=== PATIENT | female | born 1995 | race Caucasian/White ===

== ENCOUNTER 2016-10-06 11:27 | Emergency (ER) | payer OTHER ==
[~2016-10-06] VITALS: Ht 165.1 cm; Wt 96.0 kg
[~2016-10-06 11:27] MED LIST: ALBUAER19 INH; BUPR150T7 PO; FLUO10CA48 PO; FLUT220A INH; LORA10TA44 PO
[2016-10-06 11:30] VITALS: TEMP 37.1; Ht 165.1 cm; Wt 96.0 kg
[2016-10-06] MEDS ORDERED: IBUP-1050 PO (11:41)
[2016-10-06] MEDS ORDERED: PENICILLIN V POTASSIUM 250 MG TAB PO ONE (12:15)
[2016-10-06] MEDS ORDERED: HYDROCODONE/ACETAMOPHEN 5/325MG TAB PO STA (12:15)
[2016-10-06] MEDS ORDERED: PENI500T2 PO (12:18)
[2016-10-06] MEDS ORDERED: HYDR-5688 PO ×2 (12:18→12:22)
--- NOTE | 2016-10-06 12:18 | EMERGENCY ROOM VISIT NOTE ---
ED Visit Note First contact with patient: 11:50 CHIEF COMPLAINT: Right lower dental pain 2 days HISTORY OF PRESENT ILLNESS: Patient is a 21-year-old white female who presents to emergency department for evaluation of right lower dental pain. Her pain started 2 days ago. She notes it as a throbbing, constant, 9/10 pain. She is taken ibuprofen, Orajel and holding whiskey along the tooth, without relief of her pain. She states it hurts to bite down. She believes that she may have a filling in that tooth, otherwise denies any problems. No drainage, or discharge in the mouth. Denies facial swelling or fever. REVIEW OF SYSTEMS: Review of systems as per HPI. All other systems reviewed were negative. At least 6 systems reviewed. PMH: Electronic medical records are reviewed and summarized as above/below. See Problem List. SOCIAL HISTORY: Patient lives at home. PHYSICAL EXAM: Vital Signs: Reviewed Nurse's notes. CONSTITUTIONAL: Patient is a well-appearing 21-year-old white female who is awake and alert and in no acute distress. Vital signs are stable. EARS: Tympanic membranes intact, not inflamed, have normal contour. External canals clear. MOUTH: Overall the patient has good dentition. The right lower first molar in question has a filling and is tender to percussion. There is slight swelling along the gumline although no focal abscess. Mucous membranes moist, no lesions , tongue and gums appear normal. THROAT: No pharyngeal injection, exudates, or tonsillar hypertrophy. Airway is patent. No trismus noted. FACE: No facial swelling is appreciated. No cellulitic changes. NECK: No lymphadenopathy. . ED COURSE: The patient was seen and evaluated as above. The tooth is not grossly carious or decayed. There is no focal abscess along the gumline or evidence for facial cellulitis or Alfred's angina. She was given antibiotics to cover for apical infection and pain medication to use as needed. She was encouraged to follow up with a dentist for further care and management. Problem List Medical Problems: (1) Anxiety Status: Chronic (2) Anxiety Status: Resolved (3) Asthma Status: Chronic (4) Cervical strain Status: Resolved (5) Cervicalgia Status: Chronic (6) Contusion Status: Resolved (7) Facial contusion Status: Resolved (8) Headache Status: Resolved (9) Headache Status: Resolved (10) HTN (hypertension) Status: Chronic (11) Injury of right knee Status: Resolved (12) Left knee injury Status: Resolved (13) Neck muscle strain Status: Resolved (14) Neck muscle strain Status: Resolved (15) Polycystic Ovaries Status: Chronic (16) Subluxation of right patella Status: Resolved (17) Syncope Status: Resolved (18) Tobacco Use Disorder Status: Resolved (19) Work related injury Status: Resolved Surgical Problems: (1) History of arthroscopic knee surgery Status: Resolved (2) History of wisdom tooth extraction Status: Resolved Current/Historical Medications Scheduled Control Pills ( Control Pills), 1 TAB PO QAM Loratadine (Allergy), 1 TAB PO QAM Penicillin V Potassium (Veetids), 500 MG PO QID Scheduled PRN Albuterol Inhaler (Ventolin Inhaler), 2 PUFFS INH QID PRN for SOB/Wheezing Fluticasone Propionate Hfa (Flovent Hfa 220MCG Inhaler), 1 PUFF INH BID PRN for SOB/Wheezing Hydrocodone/Acetaminophen 5MG/325MG (Florence 5MG/325MG), 1-2 TABLETS PO Q4 PRN for Pain Miscellaneous Medications Ibuprofen (Advil), 200 MG PO Allergies Coded Allergies: Sulfa Antibiotics (Verified Allergy, Severe, rash, 04/01/16) Azithromycin (Verified Allergy, Unknown, RASH;SWELLING OF THE THROAT, 04/01) Hydrochlorothiazide w/Triamterene (Verified Allergy, Unknown, RASH, ) Vital Signs Date Time Temp Pulse Resp B/P Pulse Ox O2 Delivery O2 Flow Rate FiO2 10/06/16 12:30 89 16 131/79 99 10/06/16 11:30 37.1 102 16 139/83 96 Medications Administered Medications (Trade) Dose Ordered Sig/Tania Route Start Time Stop Time Status Last Admin Dose Admin Penicillin V Potassium (Veetids Tab) 500 mg ONE ONCE PO 10/06/16 12:15 10/06/16 12:16 DC 10/06/16 12:28 500 MG Acetaminophen/ Hydrocodone Bitart (Florence 5/325 Tab) 1 tab NOW STAT PO 10/06/16 12:15 10/06/16 12:16 DC 10/06/16 12:28 1 TAB Departure Information Impression Primary Impression: Dentalgia Prescriptions Hydrocodone/Acetaminophen 5MG/325MG (Florence 5MG/325MG) Tab 1-2 TABLETS PO Q4 Y for Pain, #20 TAB For Initial Treatment Prov: Ankita Angeles PA 10/06/16 Penicillin V Potassium (VEETIDS) 500 Mg Tab 500 MG PO QID, #40 TAB Prov: Ankita Angeles PA 10/06/16 Referrals Shireen Hernandes D.O. (PCP) Patient Instructions A Signature Page, My [facility] Additional Instructions DO NOT drive, drink alcohol, operate machinery, or perform dangerous activities today. You were given medications in the ER that can affect your ability to safely function or operate a vehicle. Hydrocodone/Acetaminophen (Florence) 5/325 mg: Take 1-2 pills every four hours for breakthrough pain. Avoid alcohol, operating machinery or dangerous equipment, working on ladders or roofs, DRIVING, or situations where being under the influence may be dangerous. It is recommended to use an grtq-[id number]-[id number] stool softener such as Colace, 100mg twice daily while taking this medication to avoid constipation. Penicillin 500mg: Take one pill four times daily for 10 days for your dental infection. All antibiotics can cause diarrhea. If this occurs and you feel worse or it does not resolve in 1-2 days follow up with your doctor or return to the Emergency Department as this could be signs of serious underlying problems. Any medication can cause an allergic reaction, stop the pills immediately and return to the ER for rash, hives, breathing difficulties, or swelling. Ibuprofen(Motrin, Advil) may be used for fever or pain. Use 600mg every six hours as needed. Take with food. Avoid using more than 2400mg in a 24 hour period. Do not use 2400mg per day for more than three consecutive days without physician direction. Prolonged inappropriate use can lead to stomach upset or ulcers. (AND/OR) Acetaminophen(Tylenol) may be used for fever or pain. Use 1000mg every six hours as needed. Avoid using more than 4000mg in a 24 hour period. Saltwater gargles after meals and before bedtime. Soft foods. Orajel/Anbesol/clove oil as needed for discomfort. Followup with your dentist for definitive management. You may also follow up with your primary care physician for pain/care management until you can be seen by your dentist.
[2016-10-06 12:30] VITALS: BP 131/79; PULSE 89; O2SAT 99
[2017-06-25] MEDS ORDERED: ATR25 PO (12:19)
[2017-06-25] MEDS ORDERED: BCPILLS PO (14:48)
[2017-06-25] MEDS ORDERED: FLVHFA44 INH (15:33)
[2017-06-25] MEDS ORDERED: NRN100 PO (15:33)
[2017-06-25] MEDS ORDERED: VNTHFA/IN INH (15:33)
== END 2016-10-06 12:32 | disposition home or self-care (01) ==
LOC: C.EDB 11:28 → C.EDD 12:32
DX: K08.89 Other specified disorders of teeth and supporting structures (principal); J45.909 Unspecified asthma, uncomplicated; I10 Essential (primary) hypertension; F17.200 Nicotine dependence, unspecified, uncomplicated; Z98.890 Other specified postprocedural states; Z98.818 Other dental procedure status; Z79.3 Long term (current) use of hormonal contraceptives; Z88.2 Allergy status to sulfonamides; Z88.1 Allergy status to other antibiotic agents

== ENCOUNTER → 2016-10-18 | Outpatient (CLI) | payer OTHER ==
[~2016-10-18] MED LIST changes: +ATR25 PO; +BCPILLS PO; -BUPR150T7 PO; +ETOD500T PO; -FLUO10CA48 PO; +FLVHFA44 INH; +FLX10 PO; +FRCT/ PO; +HYDR-5688 PO; +IBUP-1050 PO; +NITR1CAP16 PO; +NRN100 PO; +VENL37.593 PO; +VNTHFA/IN INH
--- NOTE | 2016-10-18 11:33 | DIAGNOSTIC IMAGING REPORT ---
MRI OF THE LUMBAR SPINE WITHOUT CONTRAST CLINICAL HISTORY: Bilateral S1 radiculopathies. Protruded lumbar disc. COMPARISON STUDY: Lumbar spine radiographs September 19, 2016. TECHNIQUE: Utilizing a 1.5 Alexsandra magnet and dedicated coil, multiplanar, multiecho imaging of the lumbar spine was performed without IV contrast. FINDINGS: For purposes of numbering on this exam, the L5-S1 disc space is assigned to axial image 33 of 36. Alignment of the lumbar spine is anatomic. Vertebral body heights are maintained. There is no marrow replacement. The paravertebral soft tissues are unremarkable. No intracanalicular mass or fluid collection is present. Conus terminates at the L1-L2 level. Several Schmorl's nodes are noted. T12-L1: There is a small right paracentral disc protrusion which results in mild narrowing of the right lateral recess. L1-2: There is a small to moderate-sized right paracentral disc osteophyte complex that results in moderate narrowing of the right lateral recess. L2-3: The central canal and neural foramen are patent. L3-4: The central canal and neural foramen are patent. L4-5: The central canal and neural foramen are patent. L5-S1: The central canal and neural foramen are patent. IMPRESSION: 1. Small to moderate-sized right paracentral disc osteophyte complex at L1-L2 that results in moderate narrowing of the right lateral recess. 2. Small right paracentral disc protrusion at T12-L1 that results in mild narrowing of the right lateral recess. 3. Otherwise, unremarkable MRI of the lumbar spine. Electronically signed by: Anthony Oro M.D. 10/18/2016 11:31 AM Dictated Date/Time: 10/18/2016 11:24 AM
== END | disposition home or self-care (01) ==
LOC: C.MRI 10:24
PROVIDERS: ATTEND Physical Medicine & Rehabilitation
DX: M54.18 Radiculopathy, sacral and sacrococcygeal region (principal); M25.78 Osteophyte, vertebrae; M48.06 Spinal stenosis, lumbar region; M51.25 Other intervertebral disc displacement, thoracolumbar region

== ENCOUNTER 2016-11-17 15:08 | Emergency (ER) | payer OTHER ==
[~2016-11-17] VITALS: Ht 170.2 cm; Wt 90.5 kg
[~2016-11-17 15:08] MED LIST changes: -ATR25 PO; -BCPILLS PO; -ETOD500T PO; -FLVHFA44 INH; -FLX10 PO; -FRCT/ PO; -NITR1CAP16 PO; -NRN100 PO; -VENL37.593 PO; -VNTHFA/IN INH
[2016-11-17 15:17] VITALS: TEMP 37.2; Ht 170.2 cm; Wt 90.5 kg
[2016-11-17] MEDS ORDERED: SODIUM CHLORIDE 0.9% 1000ML 1,000 ML IV STA (15:41)
[2016-11-17] MEDS ORDERED: ONDANSETRON INJ 2 MG/ML 2 ML VIAL IV STA (15:41)
[2016-11-17 15:58] VITALS: O2SAT 97
--- NOTE | 2016-11-17 16:02 | DIAGNOSTIC IMAGING REPORT ---
CHEST ONE VIEW PORTABLE CLINICAL HISTORY: Syncope. COMPARISON STUDY: No previous studies for comparison. FINDINGS: Lung volumes are diminished. There is no pneumothorax or pleural effusion. Cardiac size is normal. Mediastinal contours are normal. There is no evidence of pulmonary edema. IMPRESSION: 1. No acute findings. 2. Diminished lung volumes. Electronically signed by: Anthony Oro M.D. 11/17/2016 4:00 PM Dictated Date/Time: 11/17/2016 4:00 PM
[2016-11-17 16:17] LABS: BASO % 0.3 %; BASO ABS # 0.04 K/uL (0-0.2); COMPLETE YES; EOS % 1.1 %; HEMATOCRIT 41.8 % (37-47); IG% 0.3 %; LYMPH % 24.3 %; LYMPH ABS # 3.44 K/uL (1.2-3.4); MEAN CELL VOLUME 89.5 fL (80-100); MEAN CORPUSCULAR HEMOGLOBIN 31.3 pg (25-34); MEAN CORPUSCULAR HGB CONC 34.9 g/dl (32-36); MEAN PLATELET VOLUME 9.7 fL (7.4-10.4); MONO % 4.2 %; NEUT % 69.8 %; PLATELET COUNT 293 K/uL (130-400); RED BLOOD COUNT 4.67 M/uL (4.2-5.4); WHITE BLOOD COUNT 14.14 K/uL (4.8-10.8)
[2016-11-17 16:47] LABS: ALT/SGPT 29 U/L (12-78); BLOOD UREA NITROGEN 9 mg/dl (7-18); BUN/CREATININE RATIO 13.2 (10-20); CALCIUM 8.5 mg/dl (8.5-10.1); CARBON DIOXIDE 22 mmol/L (21-32); CHLORIDE 107 mmol/L (98-107); CREATININE 0.66 mg/dl (0.60-1.20); GLUCOSE 80 mg/dl (70-99); SODIUM 141 mmol/L (136-145)
[2016-11-17 16:48] LABS: ALB/GLOB RATIO 0.9 (0.9-2); ALKALINE PHOSPHATASE 94 U/L (45-117)
--- NOTE | 2016-11-17 17:32 | DIAGNOSTIC IMAGING REPORT ---
CT OF THE HEAD WITHOUT CONTRAST CLINICAL HISTORY: Syncope. Head injury. COMPARISON STUDY: Head CT September 28, 2015. CT DOSE: 691.05 mGy.cm TECHNIQUE: Helical axial images of the head were obtained without IV contrast. Automated exposure control was utilized for the study. FINDINGS: This exam is mildly compromised by motion artifact. No acute intracranial hemorrhage, midline shift or mass effect is present. Ventricular system is normal. The basilar cisterns are patent. There are no extra axial collections. Elizabeth-white differentiation is preserved. There is no calvarial fracture. IMPRESSION: 1. No acute intracranial findings. 2. No calvarial fracture. 3. Study mildly compromised by motion artifact. Electronically signed by: Anthony Oro M.D. 11/17/2016 5:30 PM Dictated Date/Time: 11/17/2016 5:28 PM
[2016-11-17 17:41] LABS: MANUAL MICROSCOPIC REQUIRED? YES; URINE APPEARANCE CLEAR (CLEAR); URINE COLOR YELLOW; URINE NITRITE NEG (NEG); URINE SPECIFIC GRAVITY 1.025 (1.000-1.030); UROBILINOGEN POS (NEG)
[2016-11-17 17:42] VITALS: BP 139/85; PULSE 91; O2SAT 97
[2016-11-17 17:44] LABS: POTASSIUM 3.7 mmol/L (3.5-5.1)
[2016-11-17 17:47] LABS: PREG INTERNAL NEGATIVE QC NEG CLEAR BACKGROUND; PREG INTERNAL POSITIVE QC POS CONTROL LINE
[2016-11-17 17:53] LABS: REVIEW REQ? NO; URINE BILIRUBIN NEG (NEG)
[2016-11-17 17:54] LABS: URINE BACTERIA NEG (NEG); URINE RBC 0-4 /hpf (0-4)
[2016-11-17 17:55] LABS: ZZUR CULT IF INDIC CLEAN CATCH NO
--- NOTE | 2016-11-17 18:00 | EMERGENCY ROOM VISIT NOTE ---
History First contact with patient: 15:29 Chief Complaint: SYNCOPE Stated Complaint: DIZZINESS,VOMITING,HEADACHE Nursing Triage Summary: Pt reports syncopal episode approx 1 hr HOSPICE LIAISON. States hit her head on the floor, c/o h/a. Pt into triage stating "I feel like I'm going to pass out." Pt states has had syncopal episodes in the past r/t bp. t denies cp. +SOB and n/v. History of Present Illness The patient is a 21 year old female who presents to the Emergency Room with complaints of several syncopal episodes. The patient reports that her symptoms began yesterday. She states that she was very upset and she was sitting on her bed with her boyfriend when she had a syncopal episode. The patient apparently had 2 syncopal episodes which lasted for 1 minute each, but does not remember these occurring. She then had one additional syncopal episode and did remember this happening. She states this has happened one time before when she was very anxious. She was told to follow-up with her primary care provider, but did not. She states that today, she was walking and became dizzy and lightheaded and had a possible syncopal episode, falling and causing her to hit her head. She has been nauseous and has not been able to eat anything since this morning. She rates her overall discomfort a 7/10. She denies any chest pain, shortness of breath, abdominal pain, vomiting, neck pain, recent illness or fevers. Review of Systems A complete 10-point Review of Systems was discussed with the patient, with pertinent positives and negatives listed in the History of Present Illness. All remaining Review of Systems questions can be considered negative unless otherwise specified. Past Medical/Surgical History Medical Problems: (1) Anxiety (2) Anxiety (3) Asthma (4) Cervical strain (5) Cervicalgia (6) Contusion (7) Facial contusion (8) Headache (9) Headache (10) HTN (hypertension) (11) Hypertension Nos (12) Injury of right knee (13) Left knee injury (14) Neck muscle strain (15) Neck muscle strain (16) Polycystic Ovaries (17) Subluxation of right patella (18) Syncope (19) Tobacco Use Disorder (20) Work related injury Surgical Problems: (1) History of arthroscopic knee surgery (2) History of wisdom tooth extraction Family History Diabetes mellitus Social History Smoking Status: Former Smoker Alcohol Use: none Marital Status: single Housing Status: lives with family Occupation Status: employed, student Current/Historical Medications Scheduled Control Pills ( Control Pills), 1 TAB PO QAM Gabapentin (Gabapentin), 100 MG PO TID Loratadine (Allergy), 1 TAB PO QAM Scheduled PRN Albuterol Hfa (Ventolin Hfa), 2 INH QID PRN for SOB/Wheezing Fluticasone Propionate (Flovent Hfa), 2 PUFFS INH BID PRN for SOB/Wheezing Ibuprofen (Advil), 400 MG PO UD PRN for Headache or Pain Allergies Coded Allergies: Sulfa Antibiotics (Verified Allergy, Severe, rash, 11/17/16) Azithromycin (Verified Allergy, Unknown, RASH;SWELLING OF THE THROAT, 11/17) Hydrochlorothiazide w/Triamterene (Verified Allergy, Unknown, RASH, ) Physical Exam Vital Signs Date Time Temp Pulse Resp B/P Pulse Ox O2 Delivery O2 Flow Rate FiO2 11/17/16 17:42 91 18 139/85 97 11/17/16 15:58 97 Room Air 11/17/16 15:55 88 23 149/90 90 138/92 97 139/102 11/17/16 15:17 37.2 107 18 148/88 97 Room Air Physical Exam VITALS: Vitals are noted on the nurse's note and reviewed by myself. Vital signs stable. GENERAL: This is a 21-year-old female, in no acute distress, nondiaphoretic, well-developed well-nourished. SKIN: Capillary reflex less than 2 seconds. HEENT: Normocephalic. PERRLA. EOMI. no nystagmus. Nares patent. Mucous membranes moist. Neck is supple without nuchal rigidity. HEART: Regular rate and rhythm without murmurs gallops or rubs. LUNGS: Clear to auscultation bilaterally without wheezes, rales or rhonchi. ABDOMEN: Positive bowel sounds x 4. Soft, nontender to palpation. MUSCULOSKELETAL: Full range of motion throughout. Strength 5/5 throughout. NEURO: Patient was alert and oriented to person place and time. Normal sensation to light and sharp touch. Medical Decision & Procedures ER Provider Diagnostic Interpretation: CHEST ONE VIEW PORTABLE FINDINGS: Lung volumes are diminished. There is no pneumothorax or pleural effusion. Cardiac size is normal. Mediastinal contours are normal. There is no evidence of pulmonary edema. IMPRESSION: 1. No acute findings. 2. Diminished lung volumes. CT OF THE HEAD WITHOUT CONTRAST FINDINGS: This exam is mildly compromised by motion artifact. No acute intracranial hemorrhage, midline shift or mass effect is present. Ventricular system is normal. The basilar cisterns are patent. There are no extra axial collections. Elizabeth-white differentiation is preserved. There is no calvarial fracture. IMPRESSION: 1. No acute intracranial findings. 2. No calvarial fracture. 3. Study mildly compromised by motion artifact. Laboratory Results 11/17/16 16:05 Red Blood Count 4.67, Mean Corpuscular Volume 89.5, Mean Corpuscular Hemoglobin 31.3, Mean Corpuscular Hemoglobin Concent 34.9, Mean Platelet Volume 9.7, Neutrophils (%) (Auto) 69.8, Lymphocytes (%) (Auto) 24.3, Monocytes (%) (Auto) 4.2, Eosinophils (%) (Auto) 1.1, Basophils (%) (Auto) 0.3, Neutrophils # (Auto) 9.86, Lymphocytes # (Auto) 3.44, Monocytes # (Auto) 0.60, Eosinophils # (Auto) 0.16, Basophils # (Auto) 0.04 11/17/16 16:05 11/17/16 17:19 Test 11/17/16 16:05 11/17/16 17:19 11/17/16 17:30 White Blood Count 14.14 K/uL (4.8-10.8) Red Blood Count 4.67 M/uL (4.2-5.4) Hemoglobin 14.6 g/dL (12.0-16.0) Hematocrit 41.8 % (37-47) Mean Corpuscular Volume 89.5 fL (80-100) Mean Corpuscular Hemoglobin 31.3 pg (25-34) Mean Corpuscular Hemoglobin Concent 34.9 g/dl (32-36) Platelet Count 293 K/uL (130-400) Mean Platelet Volume 9.7 fL (7.4-10.4) Neutrophils (%) (Auto) 69.8 % Lymphocytes (%) (Auto) 24.3 % Monocytes (%) (Auto) 4.2 % Eosinophils (%) (Auto) 1.1 % Basophils (%) (Auto) 0.3 % Neutrophils # (Auto) 9.86 K/uL (1.4-6.5) Lymphocytes # (Auto) 3.44 K/uL (1.2-3.4) Monocytes # (Auto) 0.60 K/uL (0.11-0.59) Eosinophils # (Auto) 0.16 K/uL (0-0.5) Basophils # (Auto) 0.04 K/uL (0-0.2) RDW Standard Deviation 42.3 fL (36.4-46.3) RDW Coefficient of Variation 13.0 % (11.5-14.5) Immature Granulocyte % (Auto) 0.3 % Immature Granulocyte # (Auto) 0.04 K/uL (0.00-0.02) Anion Gap 12.0 mmol/L (3-11) Est Creatinine Clear Calc Drug Dose 155.7 ml/min Estimated GFR () 146.4 Estimated GFR (Non- 126.3 BUN/Creatinine Ratio 13.2 (10-20) Calcium Level 8.5 mg/dl (8.5-10.1) Total Bilirubin 0.5 mg/dl (0.2-1) Alanine Aminotransferase (ALT/SGPT) 29 U/L (12-78) Alkaline Phosphatase 94 U/L (45-117) Troponin I < 0.015 ng/ml (0-0.045) Total Protein 7.2 gm/dl (6.4-8.2) Albumin 3.4 gm/dl (3.4-5.0) Globulin 3.8 gm/dl (2.5-4.0) Albumin/Globulin Ratio 0.9 (0.9-2) Thyroid Stimulating Hormone (TSH) 1.920 uIu/ml (0.300-4.500) Aspartate Amino Transf (AST/SGOT) 28 U/L (15-37) Chemistry Specimen Hemolysis Urine Color YELLOW Urine Appearance CLEAR (CLEAR) Urine pH 6.0 (4.5-7.5) Urine Specific Loyal 1.025 (1.000-1.030) Urine Protein NEG (NEG) Urine Glucose (UA) NEG (NEG) Urine Ketones 1+ (NEG) Urine Occult Blood 3+ (NEG) Urine Nitrite NEG (NEG) Urine Bilirubin NEG (NEG) Urine Urobilinogen POS (NEG) Urine Leukocyte Esterase NEG (NEG) Urine RBC 0-4 /hpf (0-4) Urine WBC 1-5 /hpf (0-5) Urine Epithelial Cells 20-30 /lpf (0-5) Urine Bacteria NEG (NEG) Urine Test NEG (NEG) Medications Administered Medications (Trade) Dose Ordered Sig/Tania Route Start Time Stop Time Status Last Admin Dose Admin Sodium Chloride (Nss 1000ml) 1,000 ml @ 999 mls/hr Q1H1M STAT IV 11/17/16 15:41 11/17/16 16:41 DC 11/17/16 16:11 999 MLS/HR Ondansetron HCl (Zofran Inj) 4 mg NOW STAT IV 11/17/16 15:41 11/17/16 15:43 DC 11/17/16 16:11 4 MG ECG Rate (beats per minute): 86 Rhythm: normal sinus Findings: no acute ischemic change, no ectopy, other (normal axis) Change: no significant change Medical Decision Differential diagnosis includes cardiac syncope, vasovagal syncope, anxiety, dehydration, infection, metabolic abnormality, among others. The patient was evaluated as above. Labs were drawn and IV access was obtained. Imaging studies were performed and read by radiology as above. The patient was medicated with 1 L normal saline solution and 4 mg Zofran. The patient was reassessed multiple times during their stay in the emergency department and remained in stable condition. The patient is a 21-year-old female who presents today complaining of syncopal episodes. Labs revealed a leukocytosis, which appears to be baseline for the patient. No concerning anemia or electrolyte abnormalities. Urinalysis was not suggestive of infection. Urine was negative. EKG was interpreted by myself and showed a normal sinus rhythm at 86 bpm without evidence of ischemia or ectopy. The patient was placed on the property assessment monitor throughout her stay in the emergency department. Chest x-ray and CT of the head were negative for any acute findings. Orthostatic vital signs were not positive. I do feel the patient's symptoms are likely secondary to anxiety. The patient has had similar episodes in the past and has not followed up with her primary care provider. She was informed of all the findings today and encouraged to follow up with her primary care provider for further evaluation of these ongoing symptoms. Based on the patient's presentation, lab results, and imaging studies, I feel the patient is stable for outpatient treatment. The patient's case was reviewed with Dr. Moore, ED attending physician, who agreed with my assessment and treatment plan. Discharge instructions were reviewed with the patient. The patient verbalized understanding of my assessment and treatment plan and was discharged home in good condition. Impression Primary Impression: Syncope Departure Information Dispostion Home / Self-Care Condition GOOD Referrals Shireen Hernandes D.O. (PCP) Patient Instructions My [facility] Additional Instructions Rest and drink plenty of fluids. You MUST follow-up with your primary care provider regarding these episodes. Call tomorrow for appointment. Return to the emergency department with recurrent episodes of passing out, worsening dizziness, or any other new/concerning symptoms. Problem Qualifiers Primary Impression: Syncope Syncope type: unspecified Qualified Codes: R55 - Syncope and collapse
[2017-06-25] MEDS ORDERED: ATR25 PO (12:19)
[2017-06-25] MEDS ORDERED: BCPILLS PO (14:48)
[2017-06-25] MEDS ORDERED: VNTHFA/IN INH (15:33)
[2017-06-25] MEDS ORDERED: NRN100 PO (15:33)
[2017-06-25] MEDS ORDERED: FLVHFA44 INH (15:33)
== END 2016-11-17 18:05 | disposition home or self-care (01) ==
LOC: C.EDB 15:10 → C.EDA 18:05
DX: R55 Syncope and collapse (principal); I10 Essential (primary) hypertension; J45.909 Unspecified asthma, uncomplicated; E28.2 Polycystic ovarian syndrome; Z87.828 Personal history of other (healed) physical injury and trauma; Z87.891 Personal history of nicotine dependence; Z98.818 Other dental procedure status; Z98.890 Other specified postprocedural states; Z83.3 Family history of diabetes mellitus

== ENCOUNTER 2017-03-20 22:31 | Emergency (ER) | payer OTHER ==
[~2017-03-20] VITALS: Ht 162.6 cm; Wt 99.5 kg
[~2017-03-20 22:31] MED LIST changes: -ALBUAER19 INH; -FLUT220A INH; -HYDR-5688 PO
[2017-03-20 22:35] VITALS: TEMP 36.9; Ht 162.6 cm; Wt 99.5 kg
[2017-03-20 22:50] VITALS: O2SAT 98
[2017-03-20] MEDS ORDERED: LORAZEPAM 2 MG/ML 1 ML VIAL IV STA (23:35)
[2017-03-20] MEDS ORDERED: SODIUM CHLORIDE 0.9% 500ML 500 ML IV STA (23:36)
--- NOTE | 2017-03-20 23:38 | EMERGENCY ROOM VISIT NOTE ---
History Report prepared by Unique: Darrick Cason Under the Supervision of: Dr. Jes Rosa D.O. First contact with patient: 22:59 Chief Complaint: DIZZY Stated Complaint: DIZZY, VOMITING, PASSING OUT Nursing Triage Summary: Pt reports she was at [facility] today for plasma draw. Pt states she does this often and has had no issues. Today pt states she passed out and had numbness and tingling in hands and had to stop the plasma draw. Pt released to home. Pt states she passed out 3 more times at home and has an 8/10 headache. History of Present Illness The patient is a 21 year old female who presents to the Emergency Room with complaints of intermittent syncope that started to occur earlier today. The patient is a frequent participant at the plasma donation center [facility]. She states that she normally does not have any issues with donation. She notes that she has not been there for a couple weeks secondary to a tooth removal. Today however, the patient began to feel diaphoretic and passed out during her plasma draw and began to have numbness and tingling in her hands. She states that her blood pressure was elevated after the episode and needed to return to baseline before she was sent home. She was given Sodium Chloride 1000 ml @ 999 mls/hr IV after her plasma donation. She was then sent home. She notes that she did eat before her visit. When she was at home, she continued to experience dizziness, vomiting, and syncope. She is also experiencing a headache. The patient has a history of anxiety and hypertension. Her high blood pressure was diagnosed by her PCP. Due to her young age, her doctor recommended smoking cessation and weight loss. The patient states that she has stopped smoking, but has been struggling with her weight because of this. She does not take any current medications. She stopped taking her Depression medication 1 year ago. She denies any abdominal pain. Her last menstrual period was a couple of days ago. She states there is no chance she is . Source of History: patient Onset: earlier today Position: other (global) Symptom Intensity: 4 episodes Quality: other (Syncope) Timing: intermittent Associated Symptoms: + headache, + diaphoresis, + vomiting, + numbness, No abdominal pain Note: She experiencing tingling in her hands and dizziness. Review of Systems See HPI for pertinent positives & negatives. A total of 10 systems reviewed and were otherwise negative. Past Medical & Surgical Medical Problems: (1) Anxiety (2) Anxiety (3) Asthma (4) Cervical strain (5) Cervicalgia (6) Contusion (7) Facial contusion (8) Headache (9) Headache (10) HTN (hypertension) (11) HTN (hypertension) (12) Hypertension Nos (13) Injury of right knee (14) Left knee injury (15) Neck muscle strain (16) Neck muscle strain (17) Polycystic Ovaries (18) Subluxation of right patella (19) Syncope (20) Tobacco Use Disorder (21) Work related injury Surgical Problems: (1) History of arthroscopic knee surgery (2) History of wisdom tooth extraction Family History Diabetes mellitus Hypertension Social History Smoking Status: Former Smoker Smokeless Tobacco Use: No Alcohol Use: none Drug Use: none Marital Status: single Housing Status: lives with family Occupation Status: employed, student Current/Historical Medications Scheduled Control Pills ( Control Pills), 1 TAB PO QAM Gabapentin (Gabapentin), 100 MG PO TID Loratadine (Allergy), 1 TAB PO QAM Scheduled PRN Albuterol Hfa (Ventolin Hfa), 2 INH QID PRN for SOB/Wheezing Fluticasone Propionate (Flovent Hfa), 2 PUFFS INH BID PRN for SOB/Wheezing Ibuprofen (Advil), 400 MG PO UD PRN for Headache or Pain Allergies Coded Allergies: Sulfa Antibiotics (Verified Allergy, Severe, rash, 11/17/16) Azithromycin (Verified Allergy, Unknown, RASH;SWELLING OF THE THROAT, 11/17) Hydrochlorothiazide w/Triamterene (Verified Allergy, Unknown, RASH, ) Physical Exam Vital Signs Date Time Temp Pulse Resp B/P (MAP) Pulse Ox O2 Delivery O2 Flow Rate FiO2 03/21/17 01:11 94 18 131/103 98 03/21/17 00:31 132/88 03/21/17 00:06 88 23 98 03/21/17 00:01 126/100 03/20/17 23:36 95 18 03/20/17 23:31 89 25 130/107 98 03/20/17 23:01 93 20 135/90 03/20/17 22:52 151/94 03/20/17 22:50 93 03/20/17 22:50 132/87 03/20/17 22:50 98 Room Air 03/20/17 22:48 144/75 03/20/17 22:47 95 24 144/75 98 Room Air 99 132/87 108 151/84 03/20/17 22:35 36.9 112 18 137/83 97 Room Air Physical Exam General: Patient appears to be anxious. HEENT: Head - normocephalic and atraumatic Pupils are equal, round, and reactive to light. Extraocular eye muscles are intact, and sclera are anicteric. Nose - moist nasal mucosa without discharge. Mouth - moist buccal mucosa. Oropharynx is nonerythematous and there is no tonsillar exudate or edema noted. Neck: Supple; no JVD, nuchal rigidity, cervical lymphadenopathy. Heart: Regular rate and rhythm. There is a normal S1 and S2 with no murmurs, clicks, or gallops appreciated. Lungs: Clear to auscultation bilaterally with no wheezes, rales, or rhonchi. Abdomen: Soft, completely nontender, nondistended, with good bowel sounds. There are no palpable pulsatile masses or hepatosplenomegaly. There is no guarding, rigidity, or rebound noted. Extremities: No evidence of cyanosis, clubbing, or edema. There are easily palpable peripheral pulses. Skin: warm and dry with good turgor and no rashes. Medical Decision & Procedures Laboratory Results 03/20/17 22:55 Red Blood Count 5.33, Mean Corpuscular Volume 88.7, Mean Corpuscular Hemoglobin 31.0, Mean Corpuscular Hemoglobin Concent 34.9, Mean Platelet Volume 9.9, Neutrophils (%) (Auto) 55.3, Lymphocytes (%) (Auto) 33.5, Monocytes (%) (Auto) 6.8, Eosinophils (%) (Auto) 3.7, Basophils (%) (Auto) 0.3, Neutrophils # (Auto) 8.78, Lymphocytes # (Auto) 5.33, Monocytes # (Auto) 1.08, Eosinophils # (Auto) 0.58, Basophils # (Auto) 0.05 03/20/17 22:55 Test 03/20/17 22:50 03/20/17 22:55 Urine Color DK YELLOW Urine Appearance TURBID (CLEAR) Urine pH 5.5 (4.5-7.5) Urine Specific [place] 1.037 (1.000-1.030) Urine Protein NEG (NEG) Urine Glucose (UA) NEG (NEG) Urine Ketones TRACE (NEG) Urine Occult Blood 2+ (NEG) Urine Nitrite NEG (NEG) Urine Bilirubin NEG (NEG) Urine Urobilinogen NEG (NEG) Urine Leukocyte Esterase NEG (NEG) Urine WBC (Auto) 1-5 /hpf (0-5) Urine RBC (Auto) 0-4 /hpf (0-4) Urine Hyaline Casts (Auto) 1-5 /lpf (0-5) Urine Epithelial Cells (Auto) >30 /lpf (0-5) Urine Bacteria (Auto) 1+ (NEG) Urine Test NEG (NEG) White Blood Count 15.89 K/uL (4.8-10.8) Red Blood Count 5.33 M/uL (4.2-5.4) Hemoglobin 16.5 g/dL (12.0-16.0) Hematocrit 47.3 % (37-47) Mean Corpuscular Volume 88.7 fL (80-100) Mean Corpuscular Hemoglobin 31.0 pg (25-34) Mean Corpuscular Hemoglobin Concent 34.9 g/dl (32-36) Platelet Count 346 K/uL (130-400) Mean Platelet Volume 9.9 fL (7.4-10.4) Neutrophils (%) (Auto) 55.3 % Lymphocytes (%) (Auto) 33.5 % Monocytes (%) (Auto) 6.8 % Eosinophils (%) (Auto) 3.7 % Basophils (%) (Auto) 0.3 % Neutrophils # (Auto) 8.78 K/uL (1.4-6.5) Lymphocytes # (Auto) 5.33 K/uL (1.2-3.4) Monocytes # (Auto) 1.08 K/uL (0.11-0.59) Eosinophils # (Auto) 0.58 K/uL (0-0.5) Basophils # (Auto) 0.05 K/uL (0-0.2) RDW Standard Deviation 42.1 fL (36.4-46.3) RDW Coefficient of Variation 13.0 % (11.5-14.5) Immature Granulocyte % (Auto) 0.4 % Immature Granulocyte # (Auto) 0.07 K/uL (0.00-0.02) Anion Gap 9.0 mmol/L (3-11) Est Creatinine Clear Calc Drug Dose 129.2 ml/min Estimated GFR () 124.0 Estimated GFR (Non- 107.0 BUN/Creatinine Ratio 14.1 (10-20) Calcium Level 8.0 mg/dl (8.5-10.1) Thyroid Stimulating Hormone (TSH) 4.440 uIu/ml (0.300-4.500) Chemistry Specimen Hemolysis Laboratory results per my review. Medications Administered Medications (Trade) Dose Ordered Sig/Tania Route Start Time Stop Time Status Last Admin Dose Admin Lorazepam (Ativan Inj) 1 mg NOW STAT IV 03/20/17 23:35 03/20/17 23:37 DC 03/20/17 23:51 1 MG Sodium Chloride 500 ml @ 999 mls/hr Q31M STAT IV 03/20/17 23:36 03/21/17 00:06 DC 03/20/17 23:51 999 MLS/HR Acetaminophen (Tylenol Tab) 1,000 mg NOW STAT PO 03/21/17 00:34 03/21/17 00:35 DC 03/21/17 00:42 1,000 MG Procedure Ativan Inj 1 mg IV Sodium Chloride 500 ml @ 999 mls/hr IV Tylenol Tab 1000 mg PO ECG Indication: syncope Rate (beats per minute): 83 Rhythm: normal sinus Findings: no acute ischemic change, no ectopy ED Course 2259: Past medical records reviewed. The patient was evaluated in room B6. A complete history and physical exam was performed. 2335: Ordered Ativan Inj 1 mg IV 2336: Ordered Sodium Chloride 500 ml @ 999 mls/hr IV. 0033: I reassessed the patient at this time. She is slightly better. Her blood pressure has decreased. She would like some medication for her headache. 0034: Ordered Tylenol Tab 1000 mg PO 0109: The patient is feeling a lot better, however she still has a slight headache. 0125: Upon reevaluation, the patient is resting. I discussed findings and results with her. She verbalized agreement of the treatment plan. She was discharged home. Medical Decision The patient is a 21 year old female who presents to the ED with episodes of syncope. Differential diagnosis includes hypovolemia, near syncope, dehydration , primary hypertension, thyroid dysfunction, and anxiety. I attest that I have personally reviewed the patient's current medication list. Patient was found to have an elevated blood pressure and was referred to their primary doctor for recheck and further treatment. Laboratory Results Showed: White Blood Cell count 15.8, elevated H&H, normal TSH and glucose, normal renal function, urinalysis showed trace ketones 2+ blood and 1 + bacteria, negative for . The patient has been diagnosed with hypertension in the past. She had multiple near syncopal events today associated with dizziness. This may be related to the plasma donation from earlier today. The patient has become quite anxious as a result of the circumstances. Her blood pressure was moderately elevated here in the ER. After receiving IV Ativan, the patient's blood pressure came down nicely on its own. I have asked the patient to keep a log of her blood pressures at home so that she can follow-up with her PCP. She will also need to talk to the PCP about her anxiety and the need for possible medications. I' ve asked her not to donate any plasma over the next couple of weeks until she follows up with her PCP. Impression Primary Impression: Hypertension Additional Impression: Anxiety Scribe Attestation The scribe's documentation has been prepared under my direction and personally reviewed by me in its entirety. I confirm that the note above accurately reflects all work, treatment, procedures, and medical decision making performed by me. Departure Information Dispostion Home / Self-Care Referrals Shireen Hernandes D.O. (PCP) Forms HOME CARE DOCUMENTATION FORM, IMPORTANT VISIT INFORMATION Patient Instructions Anxiety Body Response, Anxiety Disorder, ED Hypertension Conf Out Of Control, My [facility] Odanah Epuls Additional Instructions Rest. Limit stress and anxiety Keep a log of BP twice a day...follow up closely with PCP. Limit salt and sodium intake. Do not donate plasma again til cleared by your PCP. Problem Qualifiers
[2017-03-20 23:56] LABS: URINE APPEARANCE TURBID (CLEAR); URINE BILIRUBIN NEG (NEG); URINE COLOR DK YELLOW; URINE EPITHELIAL CELL AUTO >30 /lpf (0-5); URINE NITRITE NEG (NEG); URINE PH 5.5 (4.5-7.5); URINE SPECIFIC GRAVITY 1.037 (1.000-1.030); UROBILINOGEN NEG (NEG)
[2017-03-20 23:57] LABS: MANUAL MICROSCOPIC REQUIRED? NO; REVIEW REQ? NO
[2017-03-21] LABS: HEMATOCRIT 47.3 % (37-47); MEAN CELL VOLUME 88.7 fL (80-100); MEAN CORPUSCULAR HGB CONC 34.9 g/dl (32-36); MEAN PLATELET VOLUME 9.9 fL (7.4-10.4); PLATELET COUNT 346 K/uL (130-400); RED BLOOD COUNT 5.33 M/uL (4.2-5.4); WHITE BLOOD COUNT 15.89 K/uL (4.8-10.8)
[2017-03-21 00:17] LABS: BUN/CREATININE RATIO 14.1 (10-20); CREATININE 0.79 mg/dl (0.60-1.20); POTASSIUM 3.8 mmol/L (3.5-5.1)
[2017-03-21 00:21] LABS: THYROID STIMULATING HORMONE 4.44 uIu/ml (0.300-4.500)
[2017-03-21] MEDS ORDERED: ACETAMINOPHEN 500 MG TAB PO STA (00:34)
[2017-03-21 00:42] LABS: BASO % 0.3 %; BASO ABS # 0.05 K/uL (0-0.2); COMPLETE YES; EOS % 3.7 %; IG% 0.4 %; LYMPH % 33.5 %; LYMPH ABS # 5.33 K/uL (1.2-3.4); MONO % 6.8 %; NEUT % 55.3 %
[2017-03-21 01:11] VITALS: BP 131/103; PULSE 94; O2SAT 98
[2017-06-25] MEDS ORDERED: ATR25 PO (12:19)
[2017-06-25] MEDS ORDERED: BCPILLS PO (14:48)
[2017-06-25] MEDS ORDERED: NRN100 PO (15:33)
[2017-06-25] MEDS ORDERED: VNTHFA/IN INH (15:33)
[2017-06-25] MEDS ORDERED: FLVHFA44 INH (15:33)
== END 2017-03-21 01:11 | disposition home or self-care (01) ==
LOC: C.EDB 22:33
DX: I10 Essential (primary) hypertension (principal); F41.9 Anxiety disorder, unspecified; R51 Headache; Z87.891 Personal history of nicotine dependence; Z83.3 Family history of diabetes mellitus; Z82.49 Family history of ischemic heart disease and other diseases of the circulatory system; Z79.3 Long term (current) use of hormonal contraceptives; Z79.899 Other long term (current) drug therapy

== ENCOUNTER 2017-03-30 11:48 | Emergency (ER) | payer OTHER ==
[~2017-03-30] VITALS: Ht 162.6 cm; Wt 94.0 kg
[2017-03-30 11:49] VITALS: TEMP 36.7; Ht 162.6 cm; Wt 94.0 kg
[2017-03-30 12:03] VITALS: O2SAT 97
[2017-03-30] MEDS ORDERED: SODIUM CHLORIDE 0.9% 1000ML 1,000 ML IV STA (12:08)
[2017-03-30] MEDS ORDERED: MECLIZINE HCL 25 MG TAB PO STA (12:09)
[2017-03-30] MEDS ORDERED: ONDANSETRON INJ 2 MG/ML 2 ML VIAL IV STA (12:09)
[2017-03-30] MEDS ORDERED: NITR1CAP16 PO (12:19)
[2017-03-30 12:22] LABS: BASO % 0.5 %; BASO ABS # 0.06 K/uL (0-0.2); COMPLETE YES; EOS % 2.6 %; IG% 0.3 %; LYMPH % 34.8 %; LYMPH ABS # 3.94 K/uL (1.2-3.4); MEAN CELL VOLUME 88.5 fL (80-100); MEAN CORPUSCULAR HEMOGLOBIN 30.7 pg (25-34); MEAN CORPUSCULAR HGB CONC 34.7 g/dl (32-36); MEAN PLATELET VOLUME 9.6 fL (7.4-10.4); MONO % 3.3 %; NEUT % 58.5 %; PLATELET COUNT 306 K/uL (130-400); RED BLOOD COUNT 4.86 M/uL (4.2-5.4); WHITE BLOOD COUNT 11.31 K/uL (4.8-10.8)
--- NOTE | 2017-03-30 12:24 | DIAGNOSTIC IMAGING REPORT ---
CHEST ONE VIEW PORTABLE CLINICAL HISTORY: EVALUATE ALTERED MENTAL STATUS/WEAKNESS COMPARISON STUDY: 11/17/2016 FINDINGS: The bones soft tissues and hemidiaphragms are normal. The cardiomediastinal silhouette is normal. The lungs are clear. The pulmonary vasculature is normal. IMPRESSION: Negative chest. Electronically signed by: Hammad Mejía M.D. 03/30/2017 12:22 PM Dictated Date/Time: 03/30/2017 12:22 PM
[2017-03-30 12:31] LABS: ALT/SGPT 32 U/L (12-78); BLOOD UREA NITROGEN 7 mg/dl (7-18); BUN/CREATININE RATIO 8.9 (10-20); CALCIUM 8.8 mg/dl (8.5-10.1); CARBON DIOXIDE 22 mmol/L (21-32); CHLORIDE 108 mmol/L (98-107); CREATININE 0.73 mg/dl (0.60-1.20); GLUCOSE 126 mg/dl (70-99); POTASSIUM 3.8 mmol/L (3.5-5.1); SODIUM 139 mmol/L (136-145)
[2017-03-30 12:36] LABS: ALKALINE PHOSPHATASE 95 U/L (45-117); AST/SGOT 19 U/L (15-37)
[2017-03-30 12:40] LABS: URINE APPEARANCE CLEAR (CLEAR); URINE BILIRUBIN NEG (NEG); URINE COLOR YELLOW; URINE EPITHELIAL CELL AUTO >30 /lpf (0-5); URINE NITRITE NEG (NEG); URINE SPECIFIC GRAVITY 1.021 (1.000-1.030); UROBILINOGEN NEG (NEG)
[2017-03-30 12:43] LABS: MANUAL MICROSCOPIC REQUIRED? NO; REVIEW REQ? NO
--- NOTE | 2017-03-30 12:49 | DIAGNOSTIC IMAGING REPORT ---
HEAD CT NONCONTRAST CT DOSE: 537.48 mGy.cm HISTORY: Mental status change EVALUATE ALTERED MENTAL STATUS/WEAKNESS TECHNIQUE: Multiaxial CT images of the head were performed without the use of intravenous contrast. Comparison: None. Findings: The paranasal sinuses and mastoid air cells are clear. The calvarium and skull base are intact. The ventricles and sulci are within normal limits. There is no mass, hematoma, midline shift, or acute infarct. Impression: No acute intracranial abnormality. Electronically signed by: Hammad Mejía M.D. 03/30/2017 12:48 PM Dictated Date/Time: 03/30/2017 12:46 PM
[2017-03-30] MEDS ORDERED: KETOROLAC TROMETHAMINE 30 MG/ML VIAL IV STA (13:02)
[2017-03-30] MEDS ORDERED: MoRPHine SULFATE 4 MG/ML 1 ML CARP\\VIAL IV STA (13:04)
[2017-03-30 13:38] VITALS: PULSE 81; O2SAT 97
[2017-03-30 14:02] VITALS: BP 162/99
--- NOTE | 2017-03-30 17:00 | EMERGENCY ROOM VISIT NOTE ---
History Report prepared by Unique: Opal Oneill Under the Supervision of: Dr. Oz Sorensen D.O. First contact with patient: 11:52 Chief Complaint: SYNCOPE (NEAR SYNCOPE) Stated Complaint: PASSED OUT Nursing Triage Summary: felt lightheaded, room spinning, left ear hurting and left side of head hurting , sob started tis morning when woke up. SOB happens when my blood pressure is up. 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 The patient states that this morning she woke up feeling shortness of breath. She notes that she occasionally has episodes of shortness of breath with high blood pressure about once a month. The patient reports that she was outside when she began to feel lightheaded. She notes that in the car on the way to work she felt right sided head pain, right ear pain, and the room began to spin before her vision narrowed and she lost consciousness. The patient denies any chest pain, nausea, vomiting, urinary symptoms, changes in menstrual cycle, vaginal discharge, and tingling in her fingers. She reports that she was not conscious for about 10 minutes and her mother states that she was not shaking at all during that time. The patient reports that she didn't know where she was when she woke up. She notes that she has a history of syncope but each of her previous episodes were secondary to pain. She states that she has a history of hypertension and was recently started on hydroxyzine. She denies any swelling in the calves, history of sudden in family at young age, diabetes, long trips, swelling in calves , history of blood clots, and smoking. No history of diabetes, hyperlipidemia, CAD or sudden in her family at a young age. She reports that she is on control without estrogen. The patient states that she is still dizzy and it is worse with standing. Source of History: patient Onset: just SURVEYOR'S ASSISTANT Position: other (global) Quality: other (syncope) Timing: other (episode) Modifying Factors (Worsening): other (standing) Associated Symptoms: + headache, No chest pain, No nausea, No vomiting, No urinary symptoms Note: Pt complains of right ear pain, room spinning, lightheadedness. The patient denies any changes in menstrual cycle, vaginal discharge, tingling in her fingers, swelling in the calves, history of sudden in family at young age , diabetes, long trips, swelling in calves, history of blood clots, and smoking. Review of Systems See HPI for pertinent positives & negatives. A total of 10 systems reviewed and were otherwise negative. Past Medical & Surgical Medical Problems: (1) Anxiety (2) Anxiety (3) Asthma (4) Cervical strain (5) Cervicalgia (6) Contusion (7) Facial contusion (8) Headache (9) Headache (10) HTN (hypertension) (11) HTN (hypertension) (12) Hypertension Nos (13) Injury of right knee (14) Left knee injury (15) Neck muscle strain (16) Neck muscle strain (17) Polycystic Ovaries (18) Subluxation of right patella (19) Syncope (20) Tobacco Use Disorder (21) Work related injury Surgical Problems: (1) History of arthroscopic knee surgery (2) History of wisdom tooth extraction Family History Diabetes mellitus Hypertension Social History Smoking Status: Never Smoker Alcohol Use: none Drug Use: none Marital Status: single Housing Status: lives with family Occupation Status: employed, student Current/Historical Medications Scheduled Control Pills ( Control Pills), 1 TAB PO QAM Gabapentin (Gabapentin), 100 MG PO TID Hydroxyzine HCl (Hydroxyzine HCl), 25 MG PO DAILY Nitrofurantoin Monohyd Macro (Macrobid), 100 MG PO BID Scheduled PRN Albuterol Hfa (Ventolin Hfa), 2 INH QID PRN for SOB/Wheezing Fluticasone Propionate (Flovent Hfa), 2 PUFFS INH BID PRN for SOB/Wheezing Allergies Coded Allergies: Sulfa Antibiotics (Verified Allergy, Severe, rash, 03/30/17) Azithromycin (Verified Allergy, Unknown, RASH;SWELLING OF THE THROAT, 03/30) Hydrochlorothiazide w/Triamterene (Verified Allergy, Unknown, RASH, ) Physical Exam Vital Signs Date Time Temp Pulse Resp B/P (MAP) Pulse Ox O2 Delivery O2 Flow Rate FiO2 03/30/17 14:02 162/99 03/30/17 13:38 81 23 97 03/30/17 13:23 78 15 98 03/30/17 13:08 73 18 99 03/30/17 13:01 137/92 03/30/17 12:53 77 10 99 03/30/17 12:48 81 21 98 03/30/17 12:33 85 17 97 03/30/17 12:31 88 03/30/17 12:31 136/78 03/30/17 12:03 97 Room Air 03/30/17 12:01 151/99 03/30/17 11:59 140/81 03/30/17 11:58 100 140/101 106 150/91 110 150/92 03/30/17 11:49 36.7 111 18 163/94 97 Room Air Physical Exam GENERAL: sitting up in bed, anxious, alert, well appearing, well nourished, no distress, non-toxic EYE EXAM: normal conjunctiva, PERRL and EOM's intact EARS: TMs clear bilaterally OROPHARYNX: no exudate, no erythema, lips, buccal mucosa, and tongue normal and mucous membranes are moist NECK: supple, no nuchal rigidity, no adenopathy, non-tender LUNGS: Clear to auscultation. Normal chest wall mechanics HEART: tachycardic, no murmurs, S1 normal and S2 normal ABDOMEN: abdomen soft, non-tender, normo-active bowel sounds, no masses, no rebound or guarding. BACK: Back is symmetrical on inspection and there is no deformity, no midline tenderness, no CVA tenderness. SKIN: no rashes and no bruising UPPER EXTREMITIES: upper extremities are grossly normal. LOWER EXTREMITIES: No pitting edema. NEURO EXAM: Normal sensorium, cranial nerves II-XII intact, normal speech, no weakness of arms, no weakness of legs. No drift. Finger to nose intact. Gross sensation intact. Rapid alternating movements of upper extremities intact Medical Decision & Procedures ER Provider Diagnostic Interpretation: Radiology results as stated below per my review and the radiologist's interpretation: CHEST ONE VIEW PORTABLE FINDINGS: The bones soft tissues and hemidiaphragms are normal. The cardiomediastinal silhouette is normal. The lungs are clear. The pulmonary vasculature is normal. IMPRESSION: Negative chest. Electronically signed by: Hammad Mejía M.D. 03/30/2017 12:22 PM Dictated Date/Time: 03/30/2017 12:[address] NONCONTRAST Findings: The paranasal sinuses and mastoid air cells are clear. The calvarium and skull base are intact. The ventricles and sulci are within normal limits. There is no mass, hematoma, midline shift, or acute infarct. Impression: No acute intracranial abnormality. Electronically signed by: Hammad Mejía M.D. 03/30/2017 12:48 PM Dictated Date/Time: 03/30/2017 12:46 PM Laboratory Results 03/30/17 12:05 Red Blood Count 4.86, Mean Corpuscular Volume 88.5, Mean Corpuscular Hemoglobin 30.7, Mean Corpuscular Hemoglobin Concent 34.7, Mean Platelet Volume 9.6, Neutrophils (%) (Auto) 58.5, Lymphocytes (%) (Auto) 34.8, Monocytes (%) (Auto) 3.3, Eosinophils (%) (Auto) 2.6, Basophils (%) (Auto) 0.5, Neutrophils # (Auto) 6.62, Lymphocytes # (Auto) 3.94, Monocytes # (Auto) 0.37, Eosinophils # (Auto) 0.29, Basophils # (Auto) 0.06 03/30/17 12:05 Test 03/30/17 12:05 03/30/17 12:20 03/30/17 12:22 White Blood Count 11.31 K/uL (4.8-10.8) Red Blood Count 4.86 M/uL (4.2-5.4) Hemoglobin 14.9 g/dL (12.0-16.0) Hematocrit 43.0 % (37-47) Mean Corpuscular Volume 88.5 fL (80-100) Mean Corpuscular Hemoglobin 30.7 pg (25-34) Mean Corpuscular Hemoglobin Concent 34.7 g/dl (32-36) Platelet Count 306 K/uL (130-400) Mean Platelet Volume 9.6 fL (7.4-10.4) Neutrophils (%) (Auto) 58.5 % Lymphocytes (%) (Auto) 34.8 % Monocytes (%) (Auto) 3.3 % Eosinophils (%) (Auto) 2.6 % Basophils (%) (Auto) 0.5 % Neutrophils # (Auto) 6.62 K/uL (1.4-6.5) Lymphocytes # (Auto) 3.94 K/uL (1.2-3.4) Monocytes # (Auto) 0.37 K/uL (0.11-0.59) Eosinophils # (Auto) 0.29 K/uL (0-0.5) Basophils # (Auto) 0.06 K/uL (0-0.2) RDW Standard Deviation 41.1 fL (36.4-46.3) RDW Coefficient of Variation 12.7 % (11.5-14.5) Immature Granulocyte % (Auto) 0.3 % Immature Granulocyte # (Auto) 0.03 K/uL (0.00-0.02) D-Dimer 210 ug/L FEU (0-500) Anion Gap 9.0 mmol/L (3-11) Est Creatinine Clear Calc Drug Dose 135.6 ml/min Estimated GFR () 136.5 Estimated GFR (Non- 117.7 BUN/Creatinine Ratio 8.9 (10-20) Calcium Level 8.8 mg/dl (8.5-10.1) Total Bilirubin 0.2 mg/dl (0.2-1) Direct Bilirubin < 0.1 mg/dl (0-0.2) Aspartate Amino Transf (AST/SGOT) 19 U/L (15-37) Alanine Aminotransferase (ALT/SGPT) 32 U/L (12-78) Alkaline Phosphatase 95 U/L (45-117) Troponin I < 0.015 ng/ml (0-0.045) Total Protein 7.1 gm/dl (6.4-8.2) Albumin 3.4 gm/dl (3.4-5.0) Bedside Glucose 128 mg/dl (70-90) Urine Color YELLOW Urine Appearance CLEAR (CLEAR) Urine pH 7.0 (4.5-7.5) Urine Specific [place] 1.021 (1.000-1.030) Urine Protein NEG (NEG) Urine Glucose (UA) NEG (NEG) Urine Ketones NEG (NEG) Urine Occult Blood TRACE (NEG) Urine Nitrite NEG (NEG) Urine Bilirubin NEG (NEG) Urine Urobilinogen NEG (NEG) Urine Leukocyte Esterase NEG (NEG) Urine WBC (Auto) 1-5 /hpf (0-5) Urine RBC (Auto) 0-4 /hpf (0-4) Urine Hyaline Casts (Auto) 1-5 /lpf (0-5) Urine Epithelial Cells (Auto) >30 /lpf (0-5) Urine Bacteria (Auto) NEG (NEG) Laboratory results per my review. Medications Administered Medications (Trade) Dose Ordered Sig/Tania Route Start Time Stop Time Status Last Admin Dose Admin Sodium Chloride 1,000 ml @ 999 mls/hr Q1H1M STAT IV 03/30/17 12:08 03/30/17 13:08 DC 03/30/17 12:35 999 MLS/HR Ondansetron HCl (Zofran Inj) 4 mg NOW STAT IV 03/30/17 12:09 03/30/17 12:11 DC 03/30/17 12:27 4 MG Meclizine HCl (Antivert Tab) 25 mg NOW STAT PO 03/30/17 12:09 03/30/17 12:11 DC 03/30/17 12:26 25 MG Ketorolac Tromethamine (Toradol Inj) 30 mg NOW STAT IV 03/30/17 13:02 03/30/17 13:03 DC 03/30/17 13:09 30 MG Morphine Sulfate (MoRPHine SULFATE INJ) 4 mg NOW STAT IV 03/30/17 13:04 03/30/17 13:05 DC 03/30/17 13:11 4 MG ECG Indication: syncope Rate (beats per minute): 87 Rhythm: sinus rhythm Findings: other (normal axis, normal intervals) ED Course ED COURSE: Vital signs were reviewed and showed hypertension and tachycardia The patients medical record was reviewed The above diagnostic studies were performed and reviewed. ED treatments and interventions as stated above. 1156: The patient was evaluated in room C6. A complete history and physical examination was performed. 1208: Sodium Chloride 1000 ml @ 999 mls/hr IV, Antivert Tab 25mg PO, Zofran Inj 4mg IV. 1302: Toradol Inj 30mg IV, Morphine Sulfate 4mg IV. 1334: I reevaluated the patient. She is feeling better. 1342: Upon reevaluation, the patient is doing well.I discussed my findings with the patient and she understands and agrees with the treatment plan. Based on the patients age, coexisting illnesses, exam and lab findings the decision to treat as an outpatient was made. The patient remained stable while under my care. The patient appeared well at the time of discharge. Medical Decision Differential diagnosis includes etiologies such as vasovagal event, infection, hypoglycemia, electrolyte abnormalities, cardiac sources, intracerebral event, toxicologic, neurologic, as well as others were entertained. Medication Reconciliation: I attest that I have personally reviewed the patient' s current medication list. Blood pressure screening: Patient was found to have an elevated blood pressure and was referred to their primary doctor for recheck and further treatment. Patient is a 21-year-old female who presents the ER for dizziness associated with syncope. She notes that she started to have a headache and following this she started to feel nauseous and the room was spinning. She did pass out for a short period time. There is no shaking. No signs of seizure activity. Lab work including d-dimer and troponin were negative. EKG was unremarkable. No cardiac risk factors with the exception of hypertension. Patient was given normal saline, Toradol and a small dose of morphine. She felt significantly better. She was discharged follow-up with her primary care doctor. Discussed with Pt concerning signs and symptoms to watch out for. Pt was instructed to follow up with their PCP and discussed with the patient their option to return to the ED at anytime for persistent or worsening symptoms. The appropriate anticipatory guidance and out-patient management, including indications for return to the emergency department, were explained at length to the patient and understood. Impression Primary Impression: Vasovagal syncope Scribe Attestation The scribe's documentation has been prepared under my direction and personally reviewed by me in its entirety. I confirm that the note above accurately reflects all work, treatment, procedures, and medical decision making performed by me. Departure Information Dispostion Home / Self-Care Referrals No Doctor, Assigned (PCP) Forms HOME CARE DOCUMENTATION FORM, IMPORTANT VISIT INFORMATION Patient Instructions My [facility], Syncope Causes, Syncope Dx Additional Instructions Please follow up with your primary care doctor with in the next 24 hours. Any worsening of your symptoms, please return to the ED immediately. This includes passing out, chest pain, shortness of breath, weakness or numbness in her arms or legs, or any other concerning signs or symptoms from your standpoint. Please refrain from driving for the next 24 hours.
[2017-06-25] MEDS ORDERED: ATR25 PO (12:19)
[2017-06-25] MEDS ORDERED: BCPILLS PO (14:48)
[2017-06-25] MEDS ORDERED: FLVHFA44 INH (15:33)
[2017-06-25] MEDS ORDERED: NRN100 PO (15:33)
[2017-06-25] MEDS ORDERED: VNTHFA/IN INH (15:33)
== END 2017-03-30 14:43 | disposition home or self-care (01) ==
LOC: C.EDB 11:49 → C.EDC 14:43
DX: R55 Syncope and collapse (principal); R06.02 Shortness of breath; I10 Essential (primary) hypertension; J45.909 Unspecified asthma, uncomplicated; E28.2 Polycystic ovarian syndrome; Z87.828 Personal history of other (healed) physical injury and trauma; Z98.818 Other dental procedure status; Z98.890 Other specified postprocedural states; Z83.3 Family history of diabetes mellitus; Z82.49 Family history of ischemic heart disease and other diseases of the circulatory system

== ENCOUNTER 2017-06-25 21:01 | Emergency (ER) | payer OTHER ==
[~2017-06-25] VITALS: Ht 165.1 cm; Wt 98.1 kg
[~2017-06-25 21:01] MED LIST changes: +ATR25 PO; +BCPILLS PO; +FLVHFA44 INH; -IBUP-1050 PO; -LORA10TA44 PO; +NITR1CAP16 PO; +NRN100 PO; +VNTHFA/IN INH
[2017-06-25 21:05] VITALS: TEMP 37.2; Ht 165.1 cm; Wt 98.1 kg
[2017-06-25] MEDS ORDERED: VENL37.593 PO (21:43)
[2017-06-25] MEDS ORDERED: FLX10 PO (21:43)
[2017-06-25] MEDS ORDERED: ETOD500T PO (21:48)
[2017-06-25] MEDS ORDERED: PROCHLORPERAZINE 5 MG/ML 2 ML VIAL IM STA (22:06)
[2017-06-25] MEDS ORDERED: BUTALBITAL/ACETAMIN/CAFFEINE TAB PO STA (22:06)
[2017-06-25] MEDS ORDERED: KETOROLAC TROMETHAMINE 30 MG/ML VIAL IV STA (22:06)
[2017-06-25] MEDS ORDERED: LORAZEPAM 2 MG/ML 1 ML VIAL IM STA (22:06)
[2017-06-25] MEDS ORDERED: KETOROLAC TROMETHAMINE 60 MG/2 ML VIAL IM STA (22:12)
[2017-06-25] MEDS ORDERED: DEXAMETHASONE SOD INJ 10 MG/ML VIAL IM ONE (22:15)
[2017-06-25] MEDS ORDERED: EMPTY 8 DRAM VIAL ONE (22:23)
[2017-06-25] MEDS ORDERED: FRCT/ PO (22:35)
[2017-06-25 22:51] VITALS: BP 140/104; PULSE 101; O2SAT 99
--- NOTE | 2017-06-26 00:13 | EMERGENCY ROOM VISIT NOTE ---
History First contact with patient: 21:47 Chief Complaint: SYNCOPE Stated Complaint: PASSING OUT, HEADACHE Nursing Triage Summary: Pt has been under stressed, and states when this happens she becomes hypertensive and gets panic attacks. Now has headache. Current family issues. States this is a bad anxiety attack that she didn't get under control right away. Hx of migraines. Mild dizziness. Initially blurry vision; resolved. Also reports nausea. History of Present Illness The patient is a 22 year old female who presents to the Emergency Room with complaints of a left-sided migraine, dizziness, photophobia and nausea. The patient reports a prior history of migraines when she is stressed. The patient reports that she has been under a lot of stress lately. She is on venlafaxine and hydroxyzine, and does see a psychiatrist. She has not contacted them regarding her recent stress level. The patient reports that she does have an appointment with Dr. Blake, neurologist in 2 days on 06/28. It is not the worse headache of her life. The patient reports that she also occasionally have syncopal episodes with her migraines. The patient reports that she was here proximal to 3 months ago with similar symptoms and had a normal workup performed, including a head CT. She denies any recent head injury, fevers or chills. She denies illicit drug use. She denies any other recent sick contacts , and has no fevers, chills, runny nose, sinus congestion or sore throat. She rates her discomfort a 9 out of 10. Review of Systems 10 system review was performed and was negative except for pertinent positives and negatives as indicated in history of present illness Past Medical/Surgical History Medical Problems: (1) Anxiety (2) Anxiety (3) Asthma (4) Cervical strain (5) Cervicalgia (6) Contusion (7) Facial contusion (8) Headache (9) Headache (10) HTN (hypertension) (11) HTN (hypertension) (12) Hypertension Nos (13) Injury of right knee (14) Left knee injury (15) Neck muscle strain (16) Neck muscle strain (17) Polycystic Ovaries (18) Subluxation of right patella (19) Syncope (20) Tobacco Use Disorder (21) Work related injury Surgical Problems: (1) History of arthroscopic knee surgery (2) History of wisdom tooth extraction Family History Diabetes mellitus Hypertension Social History Smoking Status: Never Smoker Alcohol Use: none Drug Use: none Marital Status: single Housing Status: lives with family Occupation Status: employed, student Current/Historical Medications Scheduled Control Pills ( Control Pills), 1 TAB PO DAILY Gabapentin (Gabapentin), 100 MG PO TID Hydroxyzine HCl (Hydroxyzine HCl), 25 MG PO DAILY Venlafaxine Hcl (Venlafaxine Extended Rel), 37.5 MG PO DAILY Scheduled PRN Acetamin/Butalbital/Caffeine (Fioricet), 1-2 TAB PO Q4H PRN for Migraine Albuterol Hfa (Ventolin Hfa), 2 PUFFS INH QID PRN for SOB/Wheezing Cyclobenzaprine HCl (Cyclobenzaprine HCl), 10 MG PO DAILY PRN for Muscle Spasm Etodolac (Etodolac Er), 500-1,000 MG PO UD PRN for Pain Fluticasone Propionate (Flovent Hfa), 2 PUFFS INH BID PRN for SOB/Wheezing Allergies Coded Allergies: Sulfa Antibiotics (Verified Allergy, Severe, rash, 06/25/17) Azithromycin (Verified Allergy, Unknown, RASH;SWELLING OF THE THROAT, 06/25) Hydrochlorothiazide w/Triamterene (Verified Allergy, Unknown, RASH, ) Physical Exam Vital Signs Date Time Temp Pulse Resp B/P (MAP) Pulse Ox O2 Delivery O2 Flow Rate FiO2 06/25/17 22:51 101 140/104 99 06/25/17 22:16 93 19 97 06/25/17 22:01 91 17 132/111 06/25/17 21:51 144/91 06/25/17 21:05 37.2 100 20 142/83 98 Room Air Pain Rating (0-10): 9.0 Physical Exam CONSTITUTIONAL: Healthy and well nourished. Alert and oriented X 3 with positive affect. HEENT: Normocephalic, atraumatic. Pupils equal, round and reactive. Patient is photophobic, precluding funduscopic exam. NECK: Full active range of motion without discomfort. No nuchal rigidity, JVD or carotid bruits. LYMPHATICS: No cervical chain adenopathy. RESPIRATORY: Clear to auscultation bilaterally with no wheezing, crackles, rhonchi or stridor. CARDIOVASCULAR: Regular rate and rhythm with no murmurs, rubs or gallops. GASTROINTESTINAL: Bowel sounds present in all quadrants. Soft and nontender to palpation. MUSCULOSKELETAL: Full range of motion of all joints without discomfort. INTEGUMENTARY: No rash or other significant dermatologic conditions noted. NEUROLOGIC: Cranial nerves II-XII grossly intact. No focal neurologic deficits noted. Normal finger to nose test. Negative pronator drift. No ataxia noted with ambulation. Medical Decision & Procedures Medications Administered Medications (Trade) Dose Ordered Sig/Tania Route Start Time Stop Time Status Last Admin Dose Admin Prochlorperazine Edisylate (Compazine Inj) 10 mg NOW STAT IM 06/25/17 22:06 06/25/17 22:09 DC 06/25/17 22:38 10 MG Lorazepam (Ativan Inj) 1 mg NOW STAT IM 06/25/17 22:06 06/25/17 22:09 DC 06/25/17 22:35 1 MG Dexamethasone Sodium Phosphate (Decadron Inj) 10 mg NOW ONCE IM 06/25/17 22:15 06/25/17 22:16 DC 06/25/17 22:41 10 MG Acetaminophen/ Butalbital/ Caffeine (Fioricet Tab) 4 tab NOW STAT PO 06/25/17 22:06 06/25/17 22:09 DC 06/25/17 22:33 4 TAB Ketorolac Tromethamine (Toradol Inj) 60 mg NOW STAT IM 06/25/17 22:12 06/25/17 22:13 DC 06/25/17 22:41 60 MG ED Course Patient history and physical exam were performed. Nurse's notes were reviewed. Vital signs were reviewed and were normal. I also reviewed documentation from the patient's ER visit in March. She had a normal workup, including labs and CT scan of the head. The patient reports that her symptoms today are similar to symptoms that she had in March, and does not feel that further workup is warranted. She is requesting "something to help the pain so I can go home and sleep." The patient was administered IM Toradol, Compazine, Ativan and Decadron. The patient did not want to wait to see how effective for treatment regimen would be. She was provided a home pack and prescription for some Fioricet. She was instructed to discuss further treatment with Dr. Blake, returning to the emergency department for any progressively worsening symptoms or other concerning symptoms. The patient was happy with plan of care, voiced understanding of all discharge instructions, and rated her discomfort a 7 out of 10 at the conclusion of my exam. Medical Decision Patient presents to the emergency department with complaint of a migraine headache. The patient refuses any additional workup today, stating that her symptoms are exactly what she had when she presented to the emergency department in March. Her workup that time was normal, and the patient does have a follow-up later with neurology in 2 days. She was instructed to return to the emergency department for any worsening symptoms. Based on the fact that the patient does have symptoms consistent with migraine, I do not suspect intracranial bleed, meningitis, CVA/TIA, thromboembolic event or carbon monoxide poisoning. [place] Drug Monitoring Program Search Results: patient reviewed within database, no issues identified Impression Primary Impression: Migraine Departure Information Dispostion Home / Self-Care Condition GOOD Prescriptions Acetamin/Butalbital/Caffeine (FIORICET) 1 Ea Tab 1-2 TAB PO Q4H Y for Migraine, #20 TAB Prov: Julius Landa PA 06/25/17 Forms HOME CARE DOCUMENTATION FORM, IMPORTANT VISIT INFORMATION Patient Instructions My [facility] Additional Instructions Rest and remain well-hydrated. Take Fioricet 1-2 pills every 4 hours as needed for additional pain relief. Follow-up with your neurologist as scheduled for further reevaluation and management. Also suggest speaking with a psychiatrist regarding your current stress level. Problem Qualifiers Primary Impression: Migraine Migraine type: unspecified Status migrainosus presence: without status migrainosus Intractability: not intractable Qualified Codes: G43.909 - Migraine, unspecified, not intractable, without status migrainosus
== END 2017-06-25 22:54 | disposition home or self-care (01) ==
LOC: C.EDB 21:02 → C.EDA 22:54
DX: G43.909 Migraine, unspecified, not intractable, without status migrainosus (principal); F41.9 Anxiety disorder, unspecified; J45.909 Unspecified asthma, uncomplicated; I10 Essential (primary) hypertension; Z83.3 Family history of diabetes mellitus; Z82.49 Family history of ischemic heart disease and other diseases of the circulatory system; Z79.3 Long term (current) use of hormonal contraceptives; Z79.899 Other long term (current) drug therapy

== ENCOUNTER → 2017-09-15 | Outpatient (CLI) | payer OTHER ==
[~2017-09-15] MED LIST changes: +ETOD500T PO; +FLX10 PO; +FRCT/ PO; -NITR1CAP16 PO; +VENL37.593 PO
[2017-09-15 16:20] LABS: PREG INTERNAL NEGATIVE QC NEG CLEAR BACKGROUND; PREG INTERNAL POSITIVE QC POS CONTROL LINE
== END | disposition home or self-care (01) ==
LOC: C.LAB1850 14:34
PROVIDERS: ATTEND Physician Assistant
DX: N91.2 Amenorrhea, unspecified (principal)

== ENCOUNTER 2017-10-09 14:59 | Emergency (ER) | payer OTHER ==
[~2017-10-09] VITALS: Ht 165.1 cm; Wt 99.8 kg
[~2017-10-09 14:59] MED LIST changes: -VNTHFA/IN INH
[2017-10-09 15:06] VITALS: TEMP 36.7; Ht 165.1 cm; Wt 99.8 kg
[2017-10-09] MEDS ORDERED: VNTHFA/IN INH (15:33)
--- NOTE | 2017-10-09 16:10 | EMERGENCY ROOM VISIT NOTE ---
History First contact with patient: 15:09 Chief Complaint: ABDOMINAL PAIN Stated Complaint: ABDOMINAL CRAMPS, NO PERIOD, NEG PREG TEST Nursing Triage Summary: RLQ abdominal pain worsening today. Denies N/V/D History of Present Illness The patient is a 22 year old female who presents to the Emergency Room with complaints of abdominal pain The pain started a few weeks ago. It is a sharp pain that is located in the RLQ. It radiates centrally and towards the vagina. All movements make the pain worse. The pain occurs for 20 minutes at a time and is worst in the morning. The patient this morning has become constant. She rates the pain as a 9/10 in severity. On ROS her only symptoms of significance are that she is unable to urinate this morning and she has abdominal pain when she tried to urinate. She has a history of PCOS and went to see her PCP. She tried obtaining an ultrasound but was unable to obtain one because insurance would not pay for it. Of note her LMP was in May. She had a urine test 2 weeks ago which was negative. She is sexually active and uses protection with one partner Review of Systems CONSTITUTIONAL: No fever, chills, sweats or night sweats. No recent infections. No weight loss or weight gain. NEUROLOGIC: No headaches, dizziness or syncopal episodes. HEENT: No hearing or visual changes. No sinus or nasal issues. No mouth sores, thrush or oral lesions. CARDIOVASCULAR: No chest pain or palpitations. RESPIRATORY: No SOB, dyspnea, cough or hemoptysis. GASTROINTESTINAL: No nausea, vomiting, diarrhea, constipation, reflux, melena or hematochezia. GENITOURINARY: No dysuria, frequency, urgency, incontinence or hematuria. SKIN: No rashes or skin lesions. No hair loss or nail changes. HEMATOLOGIC: No bleeding or abnormal bruising Past Medical/Surgical History Medical Problems: (1) Anxiety (2) Anxiety (3) Asthma (4) Cervical strain (5) Cervicalgia (6) Contusion (7) Facial contusion (8) Headache (9) Headache (10) HTN (hypertension) (11) HTN (hypertension) (12) Hypertension Nos (13) Injury of right knee (14) Left knee injury (15) Neck muscle strain (16) Neck muscle strain (17) Polycystic Ovaries (18) Subluxation of right patella (19) Syncope (20) Tobacco Use Disorder (21) Work related injury Surgical Problems: (1) History of arthroscopic knee surgery (2) History of wisdom tooth extraction Family History Diabetes mellitus Hypertension Social History Smoking Status: Never Smoker Alcohol Use: none Drug Use: none Marital Status: single Housing Status: lives with family Occupation Status: employed, student Current/Historical Medications Scheduled PRN Acetaminophen (Tylenol), 1,000 MG PO Q6H PRN for Pain or Fever Albuterol Hfa (Ventolin Hfa), 2 PUFFS INH QID PRN for SOB/Wheezing Allergies sulfa zithromax Physical Exam Vital Signs Date Time Temp Pulse Resp B/P (MAP) Pulse Ox O2 Delivery O2 Flow Rate FiO2 10/09/17 20:06 80 18 156/88 98 Room Air 10/09/17 18:26 97 18 130/83 98 10/09/17 15:06 36.7 93 16 127/81 96 Room Air Physical Exam HEENT: Head - normocephalic and atraumatic. Pupils are equal, round, and reactive to light. Extraocular eye muscles are intact and sclera are anicteric. Nose - moist nasal mucosa without discharge. Mouth - moist buccal mucosa. Oropharynx is nonerythematous and there is no tonsillar exudate or edema noted. Neck: Supple; no JVD, nuchal rigidity, cervical lymphadenopathy Heart: Regular rate and rhythm. There is a normal S1 and S2 with no murmurs, clicks, or gallops appreciated. Lungs: Clear to auscultation bilaterally with no wheezes, rales, or rhonchi. Abdomen: Soft, tender in the RLQ and LLQ, nondistended, with good bowel sounds. There are no palpable pulsatile masses or hepatosplenomegaly. There is no guarding, rigidity, or rebound noted. No CVA tenderness Extremities: No evidence of cyanosis, clubbing, or edema. There are easily palpable peripheral pulses. Neuro:The patient is awake and alert, oriented to day, time, and place. Medical Decision & Procedures Laboratory Results 10/09/17 13:50 10/09/17 13:50 Test 10/09/17 13:50 Red Blood Count 5.16 M/uL (4.2-5.4) Mean Corpuscular Volume 88.6 fL (80-100) Mean Corpuscular Hemoglobin 30.6 pg (25-34) Mean Corpuscular Hemoglobin Concent 34.6 g/dl (32-36) RDW Standard Deviation 41.9 fL (36.4-46.3) RDW Coefficient of Variation 13.0 % (11.5-14.5) Mean Platelet Volume 9.7 fL (7.4-10.4) Urine Color DK YELLOW Urine Appearance CLOUDY (CLEAR) Urine pH 5.0 (4.5-7.5) Urine Specific [place] 1.033 (1.000-1.030) Urine Protein NEG (NEG) Urine Glucose (UA) NEG (NEG) Urine Ketones NEG (NEG) Urine Occult Blood NEG (NEG) Urine Nitrite NEG (NEG) Urine Bilirubin NEG (NEG) Urine Urobilinogen NEG (NEG) Urine Leukocyte Esterase NEG (NEG) Urine WBC (Auto) 10-30 /hpf (0-5) Urine RBC (Auto) 0-4 /hpf (0-4) Urine Hyaline Casts (Auto) 0 /lpf (0-5) Urine Epithelial Cells (Auto) >30 /lpf (0-5) Urine Bacteria (Auto) 2+ (NEG) Urine Pathogenic Casts /lpf (0) Urine Mucus PRESENT (NONE PRSENT) Urine Test NEG (NEG) Anion Gap 5.0 mmol/L (3-11) Est Creatinine Clear Calc Drug Dose 172.1 ml/min Estimated GFR () 150.0 Estimated GFR (Non- 129.4 BUN/Creatinine Ratio 19.4 (10-20) Calcium Level 9.1 mg/dl (8.5-10.1) Total Bilirubin 0.5 mg/dl (0.2-1) Aspartate Amino Transf (AST/SGOT) 23 U/L (15-37) Alanine Aminotransferase (ALT/SGPT) 42 U/L (12-78) Alkaline Phosphatase 113 U/L (45-117) Total Protein 8.0 gm/dl (6.4-8.2) Albumin 4.0 gm/dl (3.4-5.0) Globulin 4.0 gm/dl (2.5-4.0) Albumin/Globulin Ratio 1.0 (0.9-2) Lipase 99 U/L (73-393) Medications Administered Medications (Trade) Dose Ordered Sig/Tania Route Start Time Stop Time Status Last Admin Dose Admin Acetaminophen (Tylenol Tab) 500 mg NOW STAT PO 1/4/18 19:23 10/09/17 19:34 DC 10/09/17 19:42 500 MG Ketorolac Tromethamine (Toradol Inj) 30 mg NOW STAT IV 10/09/17 19:23 10/09/17 19:34 DC 10/09/17 19:42 30 MG ED Course 15:20 - patient was seen at the bedside and a full history and examination were performed 15:49 - the case was discussed with Dr. Covarrubias and labs and imaging were ordered 16:40 - pelvic ultrasound did not show any abnormalities and labs were unremarkable 17:45 - patient was still having mild pain and a CT scan of her abdomen/pelvis was ordered 1900 - CT scan was unremarkable and patient was then ordered PO tylenol and IV toradol 19:40- Patient was reassess by Dr. Covarrubias and offered pelvic exam; however patient declined and said she had an appointment with [facility]. She was agreeable with being discharged Medical Decision The patient's history was concerning for abdominal pain. Differential diagnosis: Etiologies such as appendicitis, diverticulitis, PUD, biliary pathology, UTI, pancreatitis, obstruction, mesenteric ischemia, aortic pathology, infections, inflammatory bowel disease, renal colic, as well as others were entertained. Impression Primary Impression: Right lower quadrant abdominal pain Departure Information Dispostion Home / Self-Care Condition GOOD Referrals Shireen Hernandes D.O. (PCP) Patient Instructions Abdominal Pain, My [facility] Additional Instructions You had lab work done and a urine test and these were unremarkable. We also did a pelvic ultrasound and a CT of your abdomen which were unremarkable. Please rest and drink plenty of fluids Please follow up with your [facility] with the appointment that you have scheduled If you experience any worsening abdominal pain, fevers, vomiting, or shortness of breath then please come back to the emergency department
[2017-10-09 16:38] LABS: HEMATOCRIT 45.7 % (37-47); HEMOGLOBIN 15.8 g/dL (12.0-16.0); MEAN CELL VOLUME 88.6 fL (80-100); MEAN CORPUSCULAR HEMOGLOBIN 30.6 pg (25-34); MEAN CORPUSCULAR HGB CONC 34.6 g/dl (32-36); MEAN PLATELET VOLUME 9.7 fL (7.4-10.4); PLATELET COUNT 309 K/uL (130-400); RED CELL DISTRIBUTION WIDTH SD 41.9 fL (36.4-46.3); WHITE BLOOD COUNT 13.08 K/uL (4.8-10.8)
--- NOTE | 2017-10-09 16:57 | DIAGNOSTIC IMAGING REPORT ---
EXAMINATION: PELVIC ULTRASOUND (transabdominal and endovaginal scanning) CLINICAL HISTORY: Right lower quadrant abdominal pain. History of polycystic ovarian syndrome COMPARISON STUDY: None FINDINGS: The study was somewhat limited from a technical standpoint due to the patient's body habitus. The uterus measured 7.5 x 2.4 x 2.8 cm. The cervix was somewhat bulbous.. The endometrial stripe measured 2.2 mm. The right ovary measured 40 x 26 x 26 mm. The left ovary measured 44 x 25 x 27 mm. There is no ultrasonographic evidence of ovarian torsion. It should be noted that ovarian torsion can be present with normal Doppler ultrasonographic findings. There was no evidence of pathologic free pelvic fluid. IMPRESSION: 1. No pathologic adnexal masses identified. Electronically signed by: Denis Garcia M.D. 10/09/2017 4:55 PM Dictated Date/Time: 10/09/2017 4:50 PM
[2017-10-09 17:00] LABS: CALCIUM 9.1 mg/dl (8.5-10.1); CREATININE 0.6 mg/dl (0.60-1.20); POTASSIUM 3.8 mmol/L (3.5-5.1)
[2017-10-09] MEDS ORDERED: OPTIRAY 320 IV PRN (17:15)
[2017-10-09] MEDS ORDERED: ACET-1256 PO (17:20)
--- NOTE | 2017-10-09 17:49 | EMERGENCY ROOM VISIT NOTE ---
History First contact with patient: 15:09 Chief Complaint: ABDOMINAL PAIN Stated Complaint: ABDOMINAL CRAMPS, NO PERIOD, NEG PREG TEST Nursing Triage Summary: RLQ abdominal pain worsening today. Denies N/V/D History of Present Illness The patient is a 22 year old female who presents to the Emergency Room with complaints of 6-7 days of lower abdominal pain, right greater than left. Patient denies dysuria, diarrhea, abnormal vaginal discharge or bleeding. Patient states she has been in a monogamous relationship, however has had several episodes of unprotected sex. Patient states she is a history of PCOS and has not had a period since May. Patient denies any recent trauma or sick contacts. No prior history of similar episodes. Patient states right lower quadrant pain has been constant, left lower quadrant pain has been intermittent, was worse in the seated position and going over bumps in the car while coming to the emergency room. Patient attempted to follow up with her outpatient PCP however insurance denied an outpatient ultrasound and she was referred to the emergency room. Review of Systems See HPI for pertinent positives & negatives. A total of 10 systems reviewed and were otherwise negative. Past Medical/Surgical History Medical Problems: (1) Anxiety (2) Anxiety (3) Asthma (4) Cervical strain (5) Cervicalgia (6) Contusion (7) Facial contusion (8) Headache (9) Headache (10) HTN (hypertension) (11) HTN (hypertension) (12) Hypertension Nos (13) Injury of right knee (14) Left knee injury (15) Neck muscle strain (16) Neck muscle strain (17) Polycystic Ovaries (18) Subluxation of right patella (19) Syncope (20) Tobacco Use Disorder (21) Work related injury Surgical Problems: (1) History of arthroscopic knee surgery (2) History of wisdom tooth extraction Family History Diabetes mellitus Hypertension Social History Smoking Status: Never Smoker Alcohol Use: none Drug Use: none Marital Status: single Housing Status: lives with family Occupation Status: employed, student Current/Historical Medications Scheduled PRN Acetaminophen (Tylenol), 1,000 MG PO Q6H PRN for Pain or Fever Albuterol Hfa (Ventolin Hfa), 2 PUFFS INH QID PRN for SOB/Wheezing Physical Exam Vital Signs Date Time Temp Pulse Resp B/P (MAP) Pulse Ox O2 Delivery O2 Flow Rate FiO2 10/09/17 20:06 80 18 156/88 98 Room Air 10/09/17 18:26 97 18 130/83 98 10/09/17 15:06 36.7 93 16 127/81 96 Room Air Physical Exam GENERAL: alert, well appearing, well nourished, no distress, non-toxic, obese EYE EXAM: normal conjunctiva, PERRL and EOM's grossly intact OROPHARYNX: no exudate, no erythema, lips, buccal mucosa, and tongue normal and mucous membranes are moist NECK: supple, no nuchal rigidity, no adenopathy, non-tender LUNGS: Clear to auscultation. Normal chest wall mechanics HEART: no murmurs, S1 normal and S2 normal ABDOMEN: abdomen soft, RLQ and LLQ tenderness, normo-active bowel sounds, no masses, no rebound or guarding. BACK: Back is symmetrical on inspection and there is no deformity, no midline tenderness, no CVA tenderness. SKIN: no rashes and no bruising UPPER EXTREMITIES: upper extremities are grossly normal. LOWER EXTREMITIES: No pitting edema. NEURO EXAM: Normal sensorium, cranial nerves II-XII [grossly] intact, normal speech, no gross weakness of arms, no gross weakness of legs. Gross sensation intact. Medical Decision & Procedures ER Provider Diagnostic Interpretation: CT ABD/PELVIS IV CONTRAST ONLY CLINICAL HISTORY: Persistent generalized abdominal pain COMPARISON STUDY: Pelvic ultrasound dated 10/09/2017 TECHNIQUE: Following the IV administration of 94 mL of Optiray-320, CT scan of the abdomen and pelvis was performed from the lung bases to the proximal femurs. Images are reviewed in the axial, sagittal, and coronal planes. IV contrast was administered without complication. A dose lowering technique was utilized adhering to the principles of ALARA. CT DOSE: 1096.35 mGy.cm FINDINGS: Lower chest: The heart is normal in size and configuration, without pericardial effusion. The lung bases and pleural spaces are clear. Liver: There is mild hepatic steatosis. No focal masses are visualized. Gallbladder: Unremarkable. Spleen: Normal in size and attenuation. Pancreas: Unremarkable. Adrenal glands: Unremarkable. Kidneys: There is symmetric renal cortical enhancement. The kidneys are normal in size without hydronephrosis. Bowel: There are no transition zones indicate bowel obstruction. There is no acute diverticulitis. The appendix appears normal. Peritoneum: There is no intraperitoneal free air or abdominal ascites. Vasculature: The abdominal aorta is normal in course and caliber. Adenopathy: None. Pelvic viscera: The bladder, and pelvic viscera are unremarkable. Skeletal structures: There are equivocal subtle SI joint erosive changes. Sacroiliitis cannot be excluded. IMPRESSION: 1. Mild hepatic steatosis 2. No evidence of bowel obstruction. No evidence of free air 3. Normal appendix. No evidence of diverticulitis 4. Equivocal subtle erosive changes involving the right SI joint. Electronically signed by: Denis Garcia M.D. 10/09/2017 7:17 PM Dictated Date/Time: 10/09/2017 7:13 PM EXAMINATION: PELVIC ULTRASOUND (transabdominal and endovaginal scanning) CLINICAL HISTORY: Right lower quadrant abdominal pain. History of polycystic ovarian syndrome COMPARISON STUDY: None FINDINGS: The study was somewhat limited from a technical standpoint due to the patient's body habitus. The uterus measured 7.5 x 2.4 x 2.8 cm. The cervix was somewhat bulbous.. The endometrial stripe measured 2.2 mm. The right ovary measured 40 x 26 x 26 mm. The left ovary measured 44 x 25 x 27 mm. There is no ultrasonographic evidence of ovarian torsion. It should be noted that ovarian torsion can be present with normal Doppler ultrasonographic findings. There was no evidence of pathologic free pelvic fluid. IMPRESSION: 1. No pathologic adnexal masses identified. Electronically signed by: Denis Garcia M.D. 10/09/2017 4:55 PM Dictated Date/Time: 10/09/2017 4:50 PM Laboratory Results 10/09/17 13:50 10/09/17 13:50 Test 10/09/17 13:50 Red Blood Count 5.16 M/uL (4.2-5.4) Mean Corpuscular Volume 88.6 fL (80-100) Mean Corpuscular Hemoglobin 30.6 pg (25-34) Mean Corpuscular Hemoglobin Concent 34.6 g/dl (32-36) RDW Standard Deviation 41.9 fL (36.4-46.3) RDW Coefficient of Variation 13.0 % (11.5-14.5) Mean Platelet Volume 9.7 fL (7.4-10.4) Urine Color DK YELLOW Urine Appearance CLOUDY (CLEAR) Urine pH 5.0 (4.5-7.5) Urine Specific [place] 1.033 (1.000-1.030) Urine Protein NEG (NEG) Urine Glucose (UA) NEG (NEG) Urine Ketones NEG (NEG) Urine Occult Blood NEG (NEG) Urine Nitrite NEG (NEG) Urine Bilirubin NEG (NEG) Urine Urobilinogen NEG (NEG) Urine Leukocyte Esterase NEG (NEG) Urine WBC (Auto) 10-30 /hpf (0-5) Urine RBC (Auto) 0-4 /hpf (0-4) Urine Hyaline Casts (Auto) 0 /lpf (0-5) Urine Epithelial Cells (Auto) >30 /lpf (0-5) Urine Bacteria (Auto) 2+ (NEG) Urine Pathogenic Casts /lpf (0) Urine Mucus PRESENT (NONE PRSENT) Urine Test NEG (NEG) Anion Gap 5.0 mmol/L (3-11) Est Creatinine Clear Calc Drug Dose 172.1 ml/min Estimated GFR () 150.0 Estimated GFR (Non- 129.4 BUN/Creatinine Ratio 19.4 (10-20) Calcium Level 9.1 mg/dl (8.5-10.1) Total Bilirubin 0.5 mg/dl (0.2-1) Aspartate Amino Transf (AST/SGOT) 23 U/L (15-37) Alanine Aminotransferase (ALT/SGPT) 42 U/L (12-78) Alkaline Phosphatase 113 U/L (45-117) Total Protein 8.0 gm/dl (6.4-8.2) Albumin 4.0 gm/dl (3.4-5.0) Globulin 4.0 gm/dl (2.5-4.0) Albumin/Globulin Ratio 1.0 (0.9-2) Lipase 99 U/L (73-393) Medications Administered Medications (Trade) Dose Ordered Sig/Tania Route Start Time Stop Time Status Last Admin Dose Admin Acetaminophen (Tylenol Tab) 500 mg NOW STAT PO 10/09/17 19:23 10/09/17 19:34 DC 10/09/17 19:42 500 MG Ketorolac Tromethamine (Toradol Inj) 30 mg NOW STAT IV 10/09/17 19:23 10/09/17 19:34 DC 10/09/17 19:42 30 MG ED Course 1748: Updated patient on all test results so far is originally been ordered by the resident. Patient states pain still present and unchanged. Discussed CAT scan to provide additional information, patient verbalized understanding. 2000: Updated on additional results. Pain slightly improved, not completely resolved. Offered pelvic exam, pt declined, states has appt with belt maker already set up. Medical Decision Differential diagnosis: Etiologies such as appendicitis, diverticulitis, PUD, biliary pathology, UTI, pancreatitis, obstruction, mesenteric ischemia, aortic pathology, infections, inflammatory bowel disease, renal colic, as well as others were entertained. Discussed with patient all results. No evidence of acute surgical infectious pathology at this time. Discussed close follow-up with [facility]. Patient offered pelvic exam here and inclined as she is ready scheduled to see [facility]. Discussed symptoms to watch and return for, use of [id number] pain medications at home, safe sex practices, she verbalized understanding was agreeable with plan. Medication Reconcilliation Current Medication List: was personally reviewed by me Blood Pressure Screening Patient's blood pressure: Elevated blood pressure Blood pressure disposition: Elevated BP felt to be situational Impression Primary Impression: Right lower quadrant abdominal pain Additional Impression: Anxiety Departure Information Dispostion Home / Self-Care Condition GOOD Referrals Shireen Hernandes D.O. (PCP) Patient Instructions My [facility] Problem Qualifiers
--- NOTE | 2017-10-09 19:19 | DIAGNOSTIC IMAGING REPORT ---
CT ABD/PELVIS IV CONTRAST ONLY CLINICAL HISTORY: Persistent generalized abdominal pain COMPARISON STUDY: Pelvic ultrasound dated 10/09/2017 TECHNIQUE: Following the IV administration of 94 mL of Optiray-320, CT scan of the abdomen and pelvis was performed from the lung bases to the proximal femurs. Images are reviewed in the axial, sagittal, and coronal planes. IV contrast was administered without complication. A dose lowering technique was utilized adhering to the principles of ALARA. CT DOSE: 1096.35 mGy.cm FINDINGS: Lower chest: The heart is normal in size and configuration, without pericardial effusion. The lung bases and pleural spaces are clear. Liver: There is mild hepatic steatosis. No focal masses are visualized. Gallbladder: Unremarkable. Spleen: Normal in size and attenuation. Pancreas: Unremarkable. Adrenal glands: Unremarkable. Kidneys: There is symmetric renal cortical enhancement. The kidneys are normal in size without hydronephrosis. Bowel: There are no transition zones indicate bowel obstruction. There is no acute diverticulitis. The appendix appears normal. Peritoneum: There is no intraperitoneal free air or abdominal ascites. Vasculature: The abdominal aorta is normal in course and caliber. Adenopathy: None. Pelvic viscera: The bladder, and pelvic viscera are unremarkable. Skeletal structures: There are equivocal subtle SI joint erosive changes. Sacroiliitis cannot be excluded. IMPRESSION: 1. Mild hepatic steatosis 2. No evidence of bowel obstruction. No evidence of free air 3. Normal appendix. No evidence of diverticulitis 4. Equivocal subtle erosive changes involving the right SI joint. Electronically signed by: Denis Garcia M.D. 10/09/2017 7:17 PM Dictated Date/Time: 10/09/2017 7:13 PM
[2017-10-09] MEDS ORDERED: KETOROLAC TROMETHAMINE 30 MG/ML VIAL IV STA (19:23)
[2017-10-09] MEDS ORDERED: ACETAMINOPHEN 500 MG TAB PO STA (19:23)
[2017-10-09 20:06] VITALS: BP 156/88; PULSE 80; O2SAT 98
== END 2017-10-09 20:47 | disposition home or self-care (01) ==
LOC: C.EDB 15:01 → C.EDC 20:47
DX: R10.31 Right lower quadrant pain (principal); F41.9 Anxiety disorder, unspecified; I10 Essential (primary) hypertension; Z87.828 Personal history of other (healed) physical injury and trauma; Z96.659 Presence of unspecified artificial knee joint; Z83.3 Family history of diabetes mellitus; Z82.49 Family history of ischemic heart disease and other diseases of the circulatory system